=== PATIENT | female | born 1980 | race African-American/Black ===

== ENCOUNTER 2017-08-26 15:39 | Emergency (ER) | payer OTHER ==
[~2017-08-26] VITALS: Ht 157.5 cm; Wt 80.0 kg
[~2017-08-26 15:39] MED LIST: PRENATAL VITAMIN
[2017-08-26] MEDS ORDERED: FOLI-43 PO (15:59)
[2017-08-26] MEDS ORDERED: ACETAMINOPHEN 325MG TABLET PO STA (19:01)
[2017-08-26 19:38] LABS: BASOPHILS % 1.1 % (0.0-2.0); EOSINOPHILS % 1.2 % (0.0-5.0); HEMATOCRIT. 33.3 % (36.0-48.0); HEMOGLOBIN. 11.3 g/dL (12.0-16.0); MEAN CORPUSCULAR VOLUME 91.2 fL (81.0-99.0); MEAN PLATELET VOLUME 6.9 fl (7.4-10.4); MONOCYTES % 9.1 % (2.0-8.0); NEUTROPHILS % 63.6 % (40.0-76.0); PLATELET 355 x1000/uL (130-400); RED BLOOD CELL COUNT 3.66 mill/uL (4.2-5.4); RED CELL DISTRIBUTION WIDTH 14.8 % (11.6-14.6)
[2017-08-26 19:43] LABS: CHLORIDE 105 mEq/L (98-107)
[2017-08-26 19:48] LABS: CARBON DIOXIDE 23 mEq/L (21-32)
[2017-08-26 19:54] VITALS: BP 121/79
== END 2017-08-26 20:45 | disposition home or self-care (01) ==
LOC: ER 15:39
DX: O26.892 Other specified pregnancy related conditions, second trimester (principal); R51 Headache; Z3A.14 14 weeks gestation of pregnancy; Z98.890 Other specified postprocedural states
CPT/HCPCS: 36415; 80053; 85025; 99284

== ENCOUNTER 2019-11-21 20:22 | Emergency (ER) | payer OTHER ==
[~2019-11-21] VITALS: Ht 157.5 cm; Wt 81.0 kg
[~2019-11-21 20:22] MED LIST changes: +FOLI-43 PO
[2019-11-21] MEDS ORDERED: SODIUM CHLORIDE 0.9% 500 ML IV ONE (21:15)
[2019-11-21] MEDS ORDERED: ACETAMINOPHEN 500MG TABLET PO NR (21:15)
[2019-11-21 22:14] VITALS: BP 125/80
== END 2019-11-21 22:16 | disposition home or self-care (01) ==
LOC: ER 20:22
DX: Z20.818 Contact with and (suspected) exposure to other bacterial communicable diseases (principal); R19.7 Diarrhea, unspecified; Z71.89 Other specified counseling
CPT/HCPCS: 87635; 96360; 99283